=== PATIENT | female | born 1985 | race African-American/Black ===

== ENCOUNTER 2020-08-09 13:56 | Emergency (ER) | payer BC, OTHER ==
[~2020-08-09] VITALS: Ht 170.2 cm; Wt 90.7 kg
[~2020-08-09 13:56] MED LIST: DOXYCYCLINE MO100 MG ORAL; KEFLEX500 MG ORAL; NKM; NORCO 5-325 TA1 EACH ORAL; PRENATAL VITAM1 EACH PO
--- NOTE | 2020-08-09 14:10 | NUR ---
ED Nurse Note: PT was assisted in to ed via w/c for C/O 10/10 bilateral knee pain after jumping a gate and and landed on her feet wrong last night.
[2020-08-09] MEDS ORDERED: HYDROcodone/Acetamin 5/325 tab ORAL ONE (14:30)
--- NOTE | 2020-08-09 14:32 | Emergency Room Report ---
History of Present Illness General Chief Complaint: Lower Extremity Injury Source: Patient Present Illness HPI Disclaimer: Please note that this report is being documented using [employer] technology. This can lead to erroneous entry secondary to incorrect interpretation by the dictating instrument. HPI: 34-year-old otherwise healthy female presents for evaluation of bilateral knee pain. She jumped over a fence approximately 6 feet tall yesterday landing on her feet and complained of immediate pain in the knees. Minimal swelling. Awoke this morning with severe limited range of motion with pain worsened by any weightbearing or flexion extension. Denies large effusions or asymmetry. Denies pain in the heel, foot, ankle, hips. There is no head injury or other injury sustained. Has not taken any medication prior to arrival. 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 EOMI. Resp: Normal work of breathing Skin: Intact. No abrasions, laceration or rash over the exposed skin MSK: Normal tone and bulk. Moving all extremities. No obvious deformity. There is tenderness palpation over the proximal tibia and fibula bilaterally. No significant tenderness over the patella. No laxity in the joints on varus, valgus anterior and posterior stressing. No masses palpable in the popliteal fossa. Distal extremities are well perfused with palpable PT pulses bilaterally. Neuro: Awake and alert. Mentating appropriately Medical Decision Making Diagnostic Impression: Primary Impression: Knee contusion ER Course 34-year-old female presents with bilateral knee pain and inability to ambulate after jumping a fence yesterday. Most of her tenderness over the tibial plateau and concern over tibial plateau fractures bilateral CT scans of the knees were obtained. No fracture was identified. The patient felt very reassured by this and was feeling better after receiving oral pain medication. Knees were wrapped in Jason bandages and crutches were provided. No other injuries reported or significant findings on physical exam. She is stable to follow-up on an outpatient basis. Discussed need to follow-up with orthopedic surgery if symptoms persist. Understands and agrees with this treatment plan. CT/MRI/US Diagnostic Results CT/MRI/US Diagnostic Results : Impression Impression: No evidence of acute bony or superficial soft tissue trauma Note that internal derangement cannot be assessed on CT; consider MRI for further evaluation if there is high clinical suspicion Dictated By: Valentino Randall MD Electronically Signed By:Valentino Randall MD Signed Date/Time08/09/20 1601 CC: Pavan Carr [id number] 0 Last Vital Signs Date Time Temp Pulse Resp B/P (MAP) Pulse Ox O2 Delivery O2 Flow Rate FiO2 08/09/20 14:04 98.2 92 17 129/71 (90) 98 Room Air Disposition: HOME, SELF-CARE Condition: Stable Scripts Ibuprofen* (MOTRIN*) 600 Mg Tablet 600 MG ORAL Q8H PRN for FOR PAIN, #30 TAB 0 Refills Prov: Pavan Carr MD 08/09/20 Pavan Carr MD Aug 09, 2020 14:32
[2020-08-09] MEDS ORDERED: IBUPROFEN600 M1 ORAL (16:01)
--- NOTE | 2020-08-09 16:05 | Diagnostic Imaging Report ---
Indication: Reason For Exam: INJ Technique: Noncontrast spiral acquisitions obtained through the left knee Multiplanar reconstructions were generated. Total dose length product 137 mGycm. CTDIvol(s) 3 mGy. Radiation dose was minimized using automated exposure control Comparison: none Findings: No acute fractures. No dislocations. The joint spaces are preserved. No effusion. No significant soft tissue abnormality demonstrated. Impression: No acute bony trauma. No significant superficial soft tissue abnormality. Note, however, than internal derangement cannot be ruled out on CT scan. Consider MRI for further evaluation if there is clinical suspicion for such. The CT scanner at [facility] is accredited by the [employer] and the scans are performed using protocols designed to limit radiation exposure to as low as reasonably achievable to attain images of sufficient resolution adequate for diagnostic evaluation.
--- NOTE | 2020-08-09 16:07 | Diagnostic Imaging Report ---
Indication: Right knee pain Technique: Noncontrast spiral acquisitions obtained through the right knee Multiplanar reconstructions were generated. Total dose length product 137 mGycm. CTDIvol(s) 3 mGy. Radiation dose was minimized using automated exposure control Comparison: none Findings: No evidence of acute fracture. No dislocation. No joint effusion. The joint spaces are preserved. The extraocular geniculate soft tissues are unremarkable. Impression: No evidence of acute bony or superficial soft tissue trauma Note that internal derangement cannot be assessed on CT; consider MRI for further evaluation if there is high clinical suspicion The CT scanner at [facility] is accredited by the [employer] and the scans are performed using protocols designed to limit radiation exposure to as low as reasonably achievable to attain images of sufficient resolution adequate for diagnostic evaluation.
[2020-08-09 16:15] VITALS: BP 118/76
--- NOTE | 2020-08-09 16:15 | NUR ---
ER DISCHARGE NOTE: JOVANY wrap was put on bilateral ankle area, crutches provided and educated on how to use. pt verbalized understanding. Patient is cleared to be discharged per ERMD, pt is aox4, on room air, with stable vital signs. pt was given dc and prescription instructions, pt was able to verbalize understanding, pt id band removed without complications. pt is able to ambulate with steady gait. pt took all belongings.
== END 2020-08-09 16:15 | disposition home or self-care (01) ==
LOC: EMR 14:25
DX: S80.02XA Contusion of left knee, initial encounter (principal); S80.01XA Contusion of right knee, initial encounter; X58.XXXA Exposure to other specified factors, initial encounter; Y93.89 Activity, other specified; Y92.9 Unspecified place or not applicable
CPT/HCPCS: 99284